=== PATIENT | female | born 1955 ===

== ENCOUNTER 2018-01-14 20:38 | Emergency (ER) | payer SELFPAY ==
[2018-01-14 21:06] VITALS: BMI 27.6
[2018-01-14] MEDS ORDERED: Bacitracin 500 Units/gm Oint Foilpak UD ONE (21:20)
--- NOTE | 2018-01-14 21:25 | ED PDOC ---
Arrival/HPI - General Historian: Patient - History of Present Illness Time/Duration: Prior to Arrival Symptom Onset: Sudden Symptom Course: Unchanged Quality: Throbbing Severity Level: Mild Context: Home <Chico Judd - Last Filed: 01/14/18 21:21> <Isael Smith - Last Filed: 01/14/18 21:52> - General Chief Complaint: Abnormal Skin Integrity Time Seen by Provider: 01/14/18 21:10 - History of Present Illness Narrative History of Present Illness (Text): 01/14/18 21:22 62 year old female, presents to the emergency department with skin avulsion of the right first digit. Patient was using a knife when it slipped and cut a portion of the superficial skin. Initially bled a lot, but bleeding has stopped since in the ED. Patient is experiencing pain. Denies fever, chills, erythema, swelling, headache, dizziness, shortness of breath, chest pain, palpitations, nausea, vomiting, or urinary symptoms. (Chico Judd) Past Medical History - Provider Review Nursing Documentation Reviewed: Yes - Infectious Disease Hx of Infectious Diseases: None - Tetanus Immunization Tetanus Immunization: Unknown - Cardiac Hx Cardiac Disorders: Yes Hx Hypertension: Yes - Endocrine/Metabolic Hx Diabetes Mellitus Type 2: Yes - Psychiatric Hx Depression: Yes Hx Substance Use: No - Past Surgical History Past Surgical History: No Previous - Anesthesia Hx Anesthesia: No - Suicidal Assessment Feels Threatened In Home Enviroment: No <Chico Judd - Last Filed: 01/14/18 21:21> Family/Social History - Physician Review Nursing Documentation Reviewed: Yes Family/Social History: No Known Family HX Smoking Status: Never Smoked Hx Alcohol Use: No Hx Substance Use: No <Chico Judd - Last Filed: 01/14/18 21:21> Allergies/Home Meds <Chico Judd - Last Filed: 01/14/18 21:21> <Isael Smith - Last Filed: 01/14/18 21:52> Allergies/Adverse Reactions: Allergies No Known Allergies Allergy (Verified 05/22/16 10:28) Review of Systems - Physician Review All systems were reviewed & negative as marked: Yes - Review of Systems Constitutional: absent: Fevers Eyes: absent: Vision Changes ENT: absent: Hearing Changes Respiratory: absent: SOB, Cough Cardiovascular: absent: Chest Pain, Palpitations Gastrointestinal: absent: Abdominal Pain, Nausea, Vomiting Genitourinary Female: absent: Dysuria, Hematuria Musculoskeletal: absent: Arthralgias, Back Pain Skin: Skin Lesions. absent: Rash, Laceration, Cellulitis Neurological: absent: Headache, Dizziness Endocrine: absent: Diaphoresis <Chico Judd - Last Filed: 01/14/18 21:21> Physical Exam Vital Signs Reviewed: Yes Temperature: Afebrile Blood Pressure: Normal Pulse: Regular Respiratory Rate: Normal Appearance: Positive for: Well-Appearing, Non-Toxic, Comfortable Pain Distress: Mild Mental Status: Positive for: Alert and Oriented X 3 - Systems Exam Head: Present: Atraumatic, Normocephalic Pupils: Present: PERRL Extroacular Muscles: Present: EOMI Mouth: Present: Moist Mucous Membranes Respiratory/Chest: Present: Clear to Auscultation, Good Air Exchange. No: Respiratory Distress, Accessory Muscle Use Cardiovascular: Present: Regular Rate and Rhythm, Normal S1, S2. No: Murmurs Abdomen: No: Tenderness, Distention, Peritoneal Signs Upper Extremity: Present: NORMAL PULSES, Tenderness, Erythema, Other (skin avulsion of the right first digit ) Skin: Present: Warm, Dry, Normal Color, Abrasion. No: Rashes Psychiatric: Present: Alert, Oriented x 3, Normal Insight, Normal Concentration <Chico Judd - Last Filed: 01/14/18 21:21> Vital Signs Temp Pulse Resp BP Pulse Ox 01/14/18 20:59 98.5 F 69 18 149/85 98 Medical Decision Making <Chico Judd - Last Filed: 01/14/18 21:21> <Isael Smith - Last Filed: 01/14/18 21:52> ED Course and Treatment: 01/14/18 21:34 62F presents to ED with right first digit skin avulsion after knife accident. Patient is no longer bleeding. Superficial wound. Wound cleaned, bacitracin and bandage applied. Advised patient to keep wound clean. Avoid baths and pools for 2 weeks. Apply bacitracin and bandage. Motrin for pain. Advised not to take on empty stomach. If symptoms worsen such as fever or erythema, please return to ED. Patient verbalized understanding and agreement of treatment plan. Case reviewed and discussed with attending provider. (Chico Judd) 01/14/18 21:41 Patient seen with Resident: In agreement with resident note. Patient was seen and evaluated with resident, came up with plan and treatment together. (Isael Smith) - Medication Orders Current Medication Orders: Discontinued Medications Tetanus/Reduced Diphtheria/Acell Pertussis (Boostrix Vaccine Inj) 0.5 ml IM .ONCE ONE Stop: 01/14/18 21:33 <Chico Judd - Last Filed: 01/14/18 21:21> - PA / CHEESE WEIGHER / Resident Statement MD/DO has reviewed & agrees with the documentation as recorded. MD/DO has examined the patient and agrees with the treatment plan. - Scribe Statement The provider has reviewed the documentation as recorded by the Scribe <Isael Smith - Last Filed: 01/14/18 21:52> - Scribe Statement Yesica Vidal All medical record entries made by the Scribe were at my direction and personally dictated by me. I have reviewed the chart and agree that the record accurately reflects my personal performance of the history, physical exam, medical decision making, and the department course for this patient. I have also personally directed, reviewed, and agree with the discharge instructions and disposition. (Isael Smith) Disposition/Present on Arrival - Present on Arrival Any Indicators Present on Arrival: No History of DVT/PE: No History of Uncontrolled Diabetes: No Urinary Catheter: No History of Decub. Ulcer: No History Surgical Site Infection Following: None - Disposition Have Diagnosis and Disposition been Completed?: Yes Disposition Time: 21:24 Patient Plan: Discharge <Chico Judd - Last Filed: 01/14/18 21:21> <Isael Smith - Last Filed: 01/14/18 21:52> - Disposition Diagnosis: Avulsion of skin of finger without complication Disposition: HOME/ ROUTINE Patient Problems: Current Active Problems Problem Status Onset Avulsion of skin of finger without complication Acute Condition: STABLE Discharge Instructions (ExitCare): Wound Care (DC) Additional Instructions: Please follow up with primary medical doctor in 3-5 days. Please apply antibiotic ointment Bacitracin and keep finger clean. Avoid baths or pools to reduce chances of infection. If symptoms worsen, including but not limited to fever, bleeding, or worsening of the finger, please return to the ED. Prescriptions: Ibuprofen [Motrin] 600 mg PO PRN PRN 5 Days #20 tab PRN Reason: Pain, Mild (1-3) Referrals: Reva Hercules MD [Primary Care Provider] - Follow up with primary Forms: [employer] (Croatian)
[2018-01-14] MEDS ORDERED: TDAP Vaccine 0.5 mL Syr IM ONE (21:32)
[2018-01-14 22:13] VITALS: BP 142/72; PULSE 72; RESP 17; TEMP 98.4; O2SAT 99
== END 2018-01-14 22:13 | disposition home or self-care (01) ==
LOC: ED 20:38
DX: S61.001A Unspecified open wound of right thumb without damage to nail, initial encounter (principal); W26.0XXA Contact with knife, initial encounter; Y92.9 Unspecified place or not applicable; Z23 Encounter for immunization

== ENCOUNTER 2018-05-15 14:52 | Outpatient (CLI) | payer SELFPAY | END 2018-05-15 14:53 | disposition home or self-care (01) | LOC: LAB 14:52 ==

== ENCOUNTER 2018-07-15 12:33 | Emergency (ER) | payer SELFPAY ==
[2018-07-15 12:34] VITALS: BMI 25.6
[2018-07-15 13:19] VITALS: RESP 18
[2018-07-15 13:32] VITALS: TEMP 98.5; O2SAT 100
[2018-07-15] MEDS ORDERED: DiphenhydrAMINE 50 mg/ml Inj IVP STA (13:50)
--- NOTE | 2018-07-15 13:54 | ED PDOC ---
Arrival/HPI - General Chief Complaint: ENT Problem Time Seen by Provider: 07/15/18 12:49 Historian: Patient - History of Present Illness Narrative History of Present Illness (Text): 07/15/18 14:25 63 year old female, with past medical history of breast CA on chemotherapy, presents to the ED for evaluation of left sided lip swelling since Saturday. Patient reports associated itchiness to the area and to left side of the neck. P atient additionally states teary eyes but denies any other associated somatic complaints. Patient denies any fevers, chills, headache, dizziness, chest pain, shortness of breath, dyspnea on exertion, cough, abdominal pain, nausea, vomiting, diarrhea, back pain, neck pain, or any other complaints. Patient denies any recent changes in diet or medications. PMD: Dr. Hercules Time/Duration: < week Symptom Onset: Gradual Symptom Course: Unchanged Activities at Onset: Light Context: Home Past Medical History - Provider Review Nursing Documentation Reviewed: Yes - Infectious Disease Hx of Infectious Diseases: None - Tetanus Immunization Tetanus Immunization: Unknown - Reproductive Menopause: Yes - Cardiac Hx Cardiac Disorders: Yes Hx Hypertension: Yes - Endocrine/Metabolic Hx Diabetes Mellitus Type 2: Yes - Psychiatric Hx Depression: Yes Hx Substance Use: No - Past Surgical History Past Surgical History: No Previous - Anesthesia Hx Anesthesia: No - Suicidal Assessment Feels Threatened In Home Enviroment: No Family/Social History - Physician Review Nursing Documentation Reviewed: Yes Family/Social History: No Known Family HX Smoking Status: Never Smoked Hx Alcohol Use: No Hx Substance Use: No Allergies/Home Meds Allergies/Adverse Reactions: Allergies No Known Allergies Allergy (Verified 05/22/16 10:28) Review of Systems - Physician Review All systems were reviewed & negative as marked: Yes - Review of Systems Constitutional: absent: Fevers Eyes: absent: Vision Changes ENT: Other (Left sided lip swelling) Respiratory: absent: SOB, Cough Cardiovascular: absent: Chest Pain, MUNGUIA Gastrointestinal: absent: Abdominal Pain, Constipation, Diarrhea, Nausea, Vomiting Genitourinary Female: absent: Dysuria, Urine Output Changes Musculoskeletal: absent: Back Pain, Neck Pain Skin: absent: Rash Neurological: absent: Headache, Dizziness Psychiatric: absent: Anxiety Physical Exam Vital Signs Reviewed: Yes Vital Signs Temp Pulse Resp BP Pulse Ox 07/15/18 13:31 98.5 F 94 H 18 124/72 100 07/15/18 13:15 99.5 F 99 H 18 114/70 98 Temperature: Afebrile Blood Pressure: Normal Pulse: Regular Respiratory Rate: Normal Appearance: Positive for: Well-Appearing, Non-Toxic, Comfortable Pain Distress: None Mental Status: Positive for: Alert and Oriented X 3 Medical Decision Making ED Course and Treatment: 07/15/18 13:50 Impression: 63 year old female presents to the ED for evaluation of left sided lip swelling. Differential Diagnosis included but are not limited to: Plan: -- Labs -- Benadryl -- Pepcid -- Solumedrol -- Reassess and disposition Prior Visits: Notes and results from previous visits were reviewed. Progress Notes: - Lab Interpretations Lab Results: 07/15/18 14:40 07/15/18 14:40 Lab Results 07/15/18 14:40: Sodium 141, Potassium 4.5, Chloride 103, Carbon Dioxide 26, Anion Gap 16, BUN 12, Creatinine 0.7, Est GFR ( Amer) > 60, Est GFR (Non- Af Amer) > 60, Random Glucose 113 H, Calcium 10.4, Total Bilirubin 0.5, AST 21, ALT 18, Alkaline Phosphatase 99, Total Protein 7.7, Albumin 4.5, Globulin 3.2, Albumin/Globulin Ratio 1.4 07/15/18 14:40: WBC 14.2 H D, RBC 2.77 L, Hgb 9.0 L D, Hct 27.7 L, MCV 100.0 D, MCH 32.5, MCHC 32.5, RDW 16.4 H, Plt Count 381, MPV 8.8, Neut % (Auto) 87.0 H, Lymph % (Auto) 5.6 L, [place] % (Auto) 6.9 H, Eos % (Auto) 0.2 L, Baso % (Auto) 0. 3, Lymph # (Auto) 0.8 L, [place] # (Auto) 1.0 H, Eos # (Auto) 0.0, Baso # (Auto) 0.04, Absolute Neuts (auto) 12.39 H I have reviewed the lab results: Yes - Scribe Statement The provider has reviewed the documentation as recorded by the Scribe Scarlet Domínguez. All medical record entries made by the Scribe were at my direction and personally dictated by me. I have reviewed the chart and agree that the record accurately reflects my personal performance of the history, physical exam, medical decision making, and the department course for this patient. I have also personally directed, reviewed, and agree with the discharge instructions and disposition. Disposition/Present on Arrival - Present on Arrival Any Indicators Present on Arrival: No History of DVT/PE: No History of Uncontrolled Diabetes: No Urinary Catheter: No History of Decub. Ulcer: No History Surgical Site Infection Following: None - Disposition Have Diagnosis and Disposition been Completed?: Yes Diagnosis: Allergic reaction Disposition: HOME/ ROUTINE Disposition Time: 17:50 Patient Plan: Discharge Condition: IMPROVED Discharge Instructions (ExitCare): Allergy Skin Testing Print Language: SINHALA Additional Instructions: All medical record entries made by the Scribe were at my direction and personally dictated by me. I have reviewed the chart and agree that the record accurately reflects my personal performance of the history, physical exam, medical decision making, and the department course for this patient. I have also personally directed, reviewed, and agree with the discharge instructions and disposition. Please follow up in clinic with Dr. Hercules and with your oncologist Prescriptions: DiphenhydrAMINE [Benadryl] 25 mg PO Q6H #10 cap Mag&Al/Simet/Diphen/Lido [First Magic Mouthwash] 30 ml MM Q6H #1 kit Methylprednisolone [Medrol Dose Pack (21 tabs)] 4 mg PO DAILY #21 mg Referrals: Reva Hercules MD [Medical Doctor] - Follow up with primary [facility] [place] - Follow up with primary Forms: [employer] (Turkish)
[2018-07-15 14:54] LABS: BASO # 0.04 K/mm3 (0.0-2.0); BASO % 0.3 % (0.0-3.0); EOS % 0.2 % (1.5-5.0); LYMPH # 0.8 (1.2-3.4); LYMPH % 5.6 % (22.0-35.0); MEAN CORPUSCULAR HEMOGLOBIN 32.5 pg (25.0-35.0); MEAN CORPUSCULAR HGB CONC 32.5 g/dl (31.0-37.0); MEAN PLATELET VOLUME 8.8 fl (7.0-11.0); MONO % 6.9 % (1.0-6.0); RBC 2.77 10^6/uL (3.5-6.1); RED CELL DISTRIBUTION WIDTH 16.4 % (11.5-14.5); WHITE BLOOD COUNT 14.2 10^3/uL (4.5-11.0)
[2018-07-15 15:01] LABS: ALB/GLOB RATIO 1.4 (1.1-1.8); ALBUMIN 4.5 g/dL (3.0-4.8); ALT/SGPT 18 U/L (7-56); AST/SGOT 21 U/L (14-36); BLOOD UREA NITROGEN 12 mg/dL (7-21); CALCIUM 10.4 mg/dL (8.4-10.5); GFR NON-AFRICAN AMERICAN > 60
[2018-07-15] MEDS ORDERED: Sodium Chloride 0.9% 1,000 ML IV STA (16:30)
[2018-07-15 17:12] VITALS: BP 133/73; PULSE 89
[2018-07-15] MEDS ORDERED: Aluminum Hydroxide/Magnesium 30 ML, DiphenhydrAMINE 75 MG, Lidocaine 2% Viscous 30 ML PO STA (17:46)
== END 2018-07-15 18:31 | disposition home or self-care (01) ==
LOC: ED 12:33
DX: T78.40XA Allergy, unspecified, initial encounter (principal); X58.XXXA Exposure to other specified factors, initial encounter
CPT/HCPCS: 80053; 85025; 96361; 96374; 96375; 99283; J1200; J1885; J2930; J7030

== ENCOUNTER 2018-07-24 12:37 | Inpatient (IN) | payer SELFPAY ==
[2018-07-24 13:02] VITALS: BMI 22.1
--- NOTE | 2018-07-24 13:53 | ED PDOC ---
Arrival/HPI - General Chief Complaint: Syncope Time Seen by Provider: 07/24/18 13:32 Historian: Patient, Family (daugther in law) - History of Present Illness Narrative History of Present Illness (Text): 07/24/18 13:42 63 y/o F with pmh of hypertension, hyperlipidemia, diabetes and 2nd stage breast cancer (currently on chemo) presents with cc of dizziness w/ LOC at store prior to arrival, per daughter in law. Patient is Emirati speaking. Per daughter in law, patient was in a store when she suddenly felt dizzy, became unresponsive and fell on her left side. Patient denies any head trauma. Patient also complains she was short of breath earlier but has since resolved prior to arrival. Patient denies any fevers, chills, headache, chest pain, shortness of breath, dyspnea on exertion, cough, diaphoresis, abdominal pain, nausea, vomiting, diarrhea, back pain, neck pain, or any other complaints. Time/Duration: Prior to Arrival Symptom Onset: Sudden Symptom Course: Unchanged Activities at Onset: Light Context: Home Past Medical History - Provider Review Nursing Documentation Reviewed: Yes - Infectious Disease Hx of Infectious Diseases: None - Tetanus Immunization Tetanus Immunization: Unknown - Reproductive Menopause: Yes - Cardiac Hx Cardiac Disorders: Yes Hx Hypertension: Yes - Endocrine/Metabolic Hx Diabetes Mellitus Type 2: Yes - Integumentary Hx Dermatological Disorder: No - Genitourinary/Gynecological Other/Comment: breast ca ,chemo - Psychiatric Hx Depression: Yes Hx Substance Use: No - Past Surgical History Past Surgical History: No Previous - Anesthesia Hx Anesthesia: No - Suicidal Assessment Feels Threatened In Home Enviroment: No Family/Social History - Physician Review Nursing Documentation Reviewed: Yes Family/Social History: Unknown Family HX Smoking Status: Never Smoked Hx Alcohol Use: No Hx Substance Use: No Allergies/Home Meds Allergies/Adverse Reactions: Allergies No Known Allergies Allergy (Verified 05/22/16 10:28) Home Medications: Home Meds Medication Instructions Recorded Confirmed Aspirin [Ecotrin] 81 mg PO DAILY 07/24/18 07/24/18 Lisinopril/Hydrochlorothiazide 1 each PO DAILY 07/24/18 07/24/18 [Lisinopril-Hctz 20-12.5 mg Tab] MetFORMIN ER [Glucophage XR] 500 mg PO BID 07/24/18 07/24/18 Simvastatin [Zocor] 20 mg PO DAILY 07/24/18 07/24/18 Review of Systems - Physician Review All systems were reviewed & negative as marked: Yes - Review of Systems Constitutional: Normal Eyes: Normal ENT: Normal Respiratory: Normal. absent: Cough Cardiovascular: Normal Gastrointestinal: Normal Genitourinary Female: Normal Musculoskeletal: Normal Skin: Normal Neurological: Dizziness Endocrine: Normal Hemo/Lymphatic: Normal Psychiatric: Normal Physical Exam Vital Signs Reviewed: Yes Appearance: Positive for: Well-Appearing, Non-Toxic, Comfortable Pain Distress: None Mental Status: Positive for: Alert and Oriented X 3 - Systems Exam Head: Present: Atraumatic, Normocephalic Pupils: Present: PERRL Extroacular Muscles: Present: EOMI Conjunctiva: Present: Normal Mouth: Present: Moist Mucous Membranes Neck: Present: Normal Range of Motion Respiratory/Chest: Present: Clear to Auscultation, Good Air Exchange, Other (Left flank tenderness). No: Respiratory Distress, Accessory Muscle Use Cardiovascular: Present: Regular Rate and Rhythm, Normal S1, S2. No: Murmurs Abdomen: No: Tenderness, Distention, Peritoneal Signs Back: Present: Normal Inspection Upper Extremity: Present: Normal Inspection. No: Cyanosis, Edema Lower Extremity: Present: Cyanosis (left tibia). No: Edema Neurological: Present: GCS=15, Speech Normal Skin: Present: Warm, Dry, Normal Color. No: Rashes Psychiatric: Present: Alert, Oriented x 3, Normal Insight, Normal Concentration Medical Decision Making ED Course and Treatment: 07/24/18 13:45 Impression: 63 y/o F presents with cc of dizziness w/ LOC at store prior to arrival, per daughter in law Differential Diagnosis included but are not limited to: -- Syncopy -- [place] -- Anemia Plan: -- Head CT w/o contrast --EKG --Labs --UA --CXR -- Reassess and disposition Prior Visits: Notes and results from previous visits were reviewed. Progress Notes: 07/24/18 15:[address] Branham who agrees to admit patient - RAD Interpretation Narrative RAD Interpretations (Text): 07/24/18 16:49 Chest X-Ray -- No active disease Head CT -- No intracranial mass, hemorrhage or evidence of acute infarct. Minimal chronic white matter ischemic change. Acid Treater: Radiologist - EKG Interpretation EKG Interpretation (Text): 07/24/18 13:56 EKG shows NSR at 87BPM with normal QRS, normal axis, normal intervals, no acute ST/T wave abnormalities. Interpreted by me. Interpreted by ED Physician: Yes Type: 12 lead EKG - Scribe Statement The provider has reviewed the documentation as recorded by the Scribe Andree Herrera All medical record entries made by the Manishaibfly were at my direction and personally dictated by me. I have reviewed the chart and agree that the record accurately reflects my personal performance of the history, physical exam, medical decision making, and the department course for this patient. I have also personally directed, reviewed, and agree with the discharge instructions and disposition. Disposition/Present on Arrival - Present on Arrival History of DVT/PE: No History of Uncontrolled Diabetes: No Urinary Catheter: No History of Decub. Ulcer: No History Surgical Site Infection Following: None - Disposition
[2018-07-24 14:40] LABS: BASO # 0.07 K/mm3 (0.0-2.0); BASO % 0.5 % (0.0-3.0); EOS # 0.1 (0.0-0.7); EOS % 0.6 % (1.5-5.0); HEMOGLOBIN 10.5 g/dL (12.0-16.0); LYMPH # 1.1 (1.2-3.4); LYMPH % 8.2 % (22.0-35.0); MEAN CELL VOLUME 98.8 fl (80.0-105.0); MEAN CORPUSCULAR HEMOGLOBIN 32.1 pg (25.0-35.0); MEAN CORPUSCULAR HGB CONC 32.5 g/dl (31.0-37.0); MONO # 0.8 (0.1-0.6); MONO % 6.2 % (1.0-6.0); RBC 3.27 10^6/uL (3.5-6.1); RED CELL DISTRIBUTION WIDTH 15.6 % (11.5-14.5)
[2018-07-24 14:44] LABS: INR 1.17; PARTIAL THROMBOPLASTIN TIME 28.9 Seconds (26.9-38.3)
[2018-07-24 15:08] LABS: ALB/GLOB RATIO 1.3 (1.1-1.8); ALBUMIN 4.2 g/dL (3.0-4.8); ALT/SGPT 20 U/L (7-56); AST/SGOT 30 U/L (14-36); BLOOD UREA NITROGEN 15 mg/dL (7-21); CALCIUM 10.2 mg/dL (8.4-10.5); GFR NON-AFRICAN AMERICAN > 60; TROPONIN I 0.01 ng/mL
--- NOTE | 2018-07-24 15:45 | RAD ---
Date of service: 07/24/2018 HISTORY: r/o infiltrate COMPARISON: No prior. TECHNIQUE: 1 view obtained. FINDINGS: LUNGS: No active pulmonary disease. PLEURA: No significant pleural effusion identified, no pneumothorax apparent. CARDIOVASCULAR: No aortic atherosclerotic calcification present. Normal cardiac size. Right-sided venous infusion port noted. OSSEOUS STRUCTURES: No significant abnormalities. VISUALIZED UPPER ABDOMEN: Normal. OTHER FINDINGS: None. IMPRESSION: No active disease.
--- NOTE | 2018-07-24 15:52 | CT ---
Date of service: 07/24/2018 PROCEDURE: CT HEAD WITHOUT CONTRAST. HISTORY: syncope COMPARISON: Not available TECHNIQUE: Axial computed tomography images were obtained through the head/brain without intravenous contrast. Radiation dose: Total exam DLP = 844.23 mGy-cm. This CT exam was performed using one or more of the following dose reduction techniques: Automated exposure control, adjustment of the mA and/or kV according to patient size, and/or use of iterative reconstruction technique. FINDINGS: HEMORRHAGE: No intracranial hemorrhage. BRAIN: No mass effect or edema. Minimal chronic white matter ischemic change adjacent to the frontal horns of the lateral ventricles. VENTRICLES: Unremarkable. No hydrocephalus. CALVARIUM: Unremarkable. PARANASAL SINUSES: Unremarkable as visualized. No significant inflammatory changes. MASTOID AIR CELLS: Unremarkable as visualized. No inflammatory changes. OTHER FINDINGS: None. IMPRESSION: No intracranial mass, hemorrhage or evidence of acute infarct. Minimal chronic white matter ischemic change.
--- NOTE | 2018-07-24 16:02 | CARD ---
APPROVED REPORT Date of service: 07/24/2018 EKG Measurement Heart [id number] <Conclusion> Normal sinus rhythm Normal ECG
--- NOTE | 2018-07-24 16:15 | CP.PCM.HP ---
<AdolfoAriel - Last Filed: 07/24/18 17:54> History of Present Illness - History of Present Illness History of Present Illness: Ariel Mata, PGY1 Medicine H&P for Dr. Kevan Branham cc: dizziness and LOC s/p syncopal episode Patient is a 63 y/o Bulgarian Speaking F with PMHx HTN, HLD, DM, diverticulitis, Stage II breast cancer (completed x8 rounds of chemotherapy) presents to the ED for syncopal episode. Patient felt dizzy while she was at the store, felt a "dark curtain over her eyes" and had an associated fall. No tongue biting, shaking, or post-ictal state. This was witnessed by bystanders. Patient had LOC. Total downtime was for 15 minutes. Patient initially had syncope, she woke up afterwards, and experienced syncope again. During her fall, she hit her head and did land on the left side of her body. She has some pain at her left thoracic region. Patient did endorse to the team that she has not eaten much lately and last time she ate was yesterday. Previously admitted for dizziness at [place] and was given x2 pRBC blood transfusions and discharged same day. Patient denies cp, shortness of breath, bloody stools, blood in urine, headache, fever, chills, n/v/d. She is aware that her Hgb count is on the low side. Last colonoscopy was in [place] and showed diverticulitis. A full 12 point ROS was conducted and unremarkable except as stated above. PMD: Dr. Hercules ([facility]) Ins: [employer] Heme/Onc: Dr. Downey PMHx: PMHX: HTN, HLD, DM, diverticulitis, Stage II breast cancer (completed x8 rounds of chemotherapy) PSHx: denies Meds: see MAR SocialHx: no EtOH, smoking, or illicit drug use. Lives with brother. FamHx: daughter has breast cancer. Father had SD. Present on Admission - Present on Admission Any Indicators Present on Admission: No Review of Systems - Review of Systems All systems: reviewed and no additional remarkable complaints except (as per HPI) Past Patient History - Infectious Disease Hx of Infectious Diseases: None - Tetanus Immunizations Tetanus Immunization: Unknown - Past Medical History & Family History Past Medical History?: Yes - Past Social History Smoking Status: Never Smoked - CARDIAC Hx Cardiac Disorders: Yes Hx Hypertension: Yes - ENDOCRINE/METABOLIC Hx Diabetes Mellitus Type 2: Yes - INTEGUMENTARY Hx Dermatological Problems: No - GENITOURINARY/GYNECOLOGICAL Other/Comment: breast ca ,chemo - PSYCHIATRIC Hx Depression: Yes Hx Substance Use: No - SURGICAL HISTORY Hx Surgeries: No - ANESTHESIA Hx Anesthesia: No Meds Allergies/Adverse Reactions: Allergies Allergy/AdvReac Type Severity Reaction Status Date / Time No Known Allergies Allergy Verified 05/22/16 10:28 Physical Exam - Constitutional Appears: No Acute Distress - Head Exam Head Exam: ATRAUMATIC, NORMAL INSPECTION, NORMOCEPHALIC - Eye Exam Eye Exam: EOMI, Normal appearance. absent: Nystagmus, Scleral icterus Pupil Exam: PERRL - ENT Exam ENT Exam: Mucous Membranes Moist - Respiratory Exam Respiratory Exam: Clear to Auscultation Bilateral. absent: Chest Wall Tenderness, Rales, Rhonchi, Wheezes - Cardiovascular Exam Cardiovascular Exam: REGULAR RHYTHM, +S1, +S2 Additional comments: Right chest wall shows scar from previous chemo-port. - Extremities Exam Extremities exam: Positive for: normal capillary refill, normal inspection, pedal pulses present - Back Exam Back exam: NORMAL INSPECTION - Neurological Exam Neurological exam: Alert, CN II-XII Intact, Oriented x3 Additional comments: Strength testing 5/5 motor. Sensation intact in all distal ext. No focal neuro deficits. Negative [place]-Hallpike maneuver. - Psychiatric Exam Psychiatric exam: Normal Affect, Normal Mood - Skin Skin Exam: Dry, Intact, Normal Color, Warm Results - Vital Signs Recent Vital Signs: Last Vital Signs Temp 98.3 F 07/24/18 13:24 Pulse 76 07/24/18 13:24 Resp 18 07/24/18 13:24 BP 130/74 07/24/18 13:24 Pulse Ox 100 07/24/18 13:24 - Labs Result Diagrams: 07/24/18 14:30 07/24/18 14:30 Labs: Laboratory Results - last 24 hr 07/24/18 07/24/18 07/24/18 14:30 14:30 14:30 WBC 13.0 H RBC 3.27 L Hgb 10.5 L Hct 32.3 L MCV 98.8 MCH 32.1 MCHC 32.5 RDW 15.6 H Plt Count 309 MPV 9.0 Neut % (Auto) 84.5 H Lymph % (Auto) 8.2 L [place] % (Auto) 6.2 H Eos % (Auto) 0.6 L Baso % (Auto) 0.5 Lymph # (Auto) 1.1 L [place] # (Auto) 0.8 H Eos # (Auto) 0.1 Baso # (Auto) 0.07 Absolute Neuts (auto) 10.96 H PT 13.0 H INR 1.17 APTT 28.9 Sodium 139 Potassium 4.2 Chloride 98 Carbon Dioxide 31 Anion Gap 13 BUN 15 Creatinine 0.9 Est GFR ( Amer) > 60 Est GFR (Non-Af Amer) > 60 Random Glucose 113 H Calcium 10.2 Phosphorus 3.9 Magnesium 1.6 L Total Bilirubin 0.4 AST 30 ALT 20 Alkaline Phosphatase 89 Lactate Dehydrogenase 351 Total Creatine Kinase 29 L Troponin I 0.01 Total Protein 7.3 Albumin 4.2 Globulin 3.2 Albumin/Globulin Ratio 1.3 Assessment & Plan - Assessment and Plan (Free Text) Assessment: Patient is a 63 y/o Bulgarian Speaking F with PMHx HTN, HLD, DM, diverticulitis, Stage II breast cancer (completed x8 rounds of chemotherapy) presents to the ED for syncopal episode. Plan: Syncope - Consider syncopal workup vs Dehydration/Poor PO intake vs symptomatic anemia (less suspicious) - orthostatic vital signs - IVF NS @ 75 cc/hr - CTA head/neck - Brain MRI - TSH - trend trops - Mild leukocytosis - will f/u UA and UCx results - Neurology is on consult (Dr. Hinojosa) - Physical therapy on board Anemia - FOBT - Hgb 10.5 (baseline 11-12) - iron studies ordered Breast Cancer (Stage II) - completed chemo; had chemo-port in place HTN - resume home med lisinopril HLD - resume home med lipitor DM - ISS - accuchecks DVT ppx: Hep sc GI ppx: not indicated Diet: CCD Dispo: Will monitor patient on telemetry. Case was discussed and reviewed with Attending Physician, Dr. Kevan Branham. <Bella Branham R - Last Filed: 07/24/18 18:35> Results - Vital Signs Recent Vital Signs: Last Vital Signs Temp 98.2 F 07/24/18 17:34 Pulse 90 07/24/18 18:23 Resp 18 07/24/18 18:23 BP 128/79 07/24/18 18:23 Pulse Ox 100 07/24/18 18:23 - Labs Result Diagrams: 07/24/18 14:30 07/24/18 14:30 Labs: Laboratory Results - last 24 hr 07/24/18 07/24/18 07/24/18 14:30 14:30 14:30 WBC 13.0 H RBC 3.27 L Hgb 10.5 L Hct 32.3 L MCV 98.8 MCH 32.1 MCHC 32.5 RDW 15.6 H Plt Count 309 MPV 9.0 Neut % (Auto) 84.5 H Lymph % (Auto) 8.2 L [place] % (Auto) 6.2 H Eos % (Auto) 0.6 L Baso % (Auto) 0.5 Lymph # (Auto) 1.1 L [place] # (Auto) 0.8 H Eos # (Auto) 0.1 Baso # (Auto) 0.07 Absolute Neuts (auto) 10.96 H PT 13.0 H INR 1.17 APTT 28.9 Sodium 139 Potassium 4.2 Chloride 98 Carbon Dioxide 31 Anion Gap 13 BUN 15 Creatinine 0.9 Est GFR ( Amer) > 60 Est GFR (Non-Af Amer) > 60 Random Glucose 113 H Calcium 10.2 Phosphorus 3.9 Magnesium 1.6 L Iron Total Bilirubin 0.4 AST 30 ALT 20 Alkaline Phosphatase 89 Lactate Dehydrogenase 351 Total Creatine Kinase 29 L Troponin I 0.01 Total Protein 7.3 Albumin 4.2 Globulin 3.2 Albumin/Globulin Ratio 1.3 07/24/18 18:00 WBC RBC Hgb Hct MCV MCH MCHC RDW Plt Count MPV Neut % (Auto) Lymph % (Auto) [place] % (Auto) Eos % (Auto) Baso % (Auto) Lymph # (Auto) [place] # (Auto) Eos # (Auto) Baso # (Auto) Absolute Neuts (auto) PT INR APTT Sodium Potassium Chloride Carbon Dioxide Anion Gap BUN Creatinine Est GFR ( Amer) Est GFR (Non-Af Amer) Random Glucose Calcium Phosphorus Magnesium Iron 52 Total Bilirubin AST ALT Alkaline Phosphatase Lactate Dehydrogenase Total Creatine Kinase Troponin I Total Protein Albumin Globulin Albumin/Globulin Ratio Attending/Attestation - Attestation I have personally seen and examined this patient.: Yes I have fully participated in the care of the patient.: Yes I have reviewed all pertinent clinical information: Yes Notes (Text): Patient seen and examined by me with resident at approximately 4:35PM on 07/24/18 in the emergency room. Case including HPI, physical exam, and assessment and plan discussed with resident. Agree with above with following additions/corrections. Patient is a 63-year-old female past medical history significant for hypertension, hyperlipidemia, type 2 diabetes, anemia, diverticulitis, syncope, and stage II breast cancer status post completion of chemotherapy weeks ago the presented to the emergency room for syncopal episode. Per patient's family at bedside, patient has not been eating well the past 2 or 3 days. She states that she has not eaten since 5 PM yesterday. She states she was walking to the store today when she felt dizzy and lightheaded and fell backwards and "passed out." Patient states she then woke up and tried to stand up but again lost consciousness. Patient states that people in the store were trying to wake her up and that she lost consciousness for about 15 minutes. Patient states that she does not believe she hit her head but she was told by others that she did. She states she is have pain on her left side where her ribs are. She states that this has happened before when she was on chemotherapy. She states it also happened when she was found to be anemic and had to get a blood transfusion May of this year. Patient denies any chest pain or shortness of breath. She denies any current headaches or dizziness. Patient does not feel weak. She denies any muscle weakness. No tingling and numbness. No fevers or chills. No nausea, vomiting, abdominal pain. No dysuria. No diarrhea or constipation. Patient does not use any assistive devices to ambulate. 12 point review of systems reviewed by me. Please see above HPI, all other systems negative. Family history: Mother from liver cancer. Father from heart attack. Allergies: no known drug allergies Medications at home: Reviewed with the patient's pharmacy Physical exam: General: Awake and alert sitting up in bed in no acute distress. HEENT: Normocephalic, atraumatic. Extraocular muscles intact, pupils equal and reactive, no scleral icterus. Oropharynx is pink and moist. No pharyngeal eryt rolando or exudate appreciated. Neck is supple. Hearing grossly intact. Ears and nose externally unremarkable. Cardiovascular: Regular rhythm. Normal S1, S2. No murmurs, rubs, or gallops appreciated Pulmonary: Normal respiratory effort. No rales or wheezing appreciated. Gastrointestinal: Soft. Nontender. Nodistended. Positive bowel sounds all 4 quadrants. No guarding. Musculoskeletal: Moves all extremities. No calf tenderness. No edema appreciated. Positive left upper rib tenderness. Central nervous system: AAOx3. CN 2-12 grossly intact. 5/5 muscle strength all extremities. Dermatologic: Skin warm and dry. Assessment and plan: Patient is a 63-year-old female past medical history significant for hypertension, hyperlipidemia, type 2 diabetes, anemia, diverticulitis, syncope, and stage II breast cancer status post completion of chemotherapy weeks ago the presented to the emergency room for syncopal episode. 1. Syncope. Head CT per radiologist showed no intracranial mass, hemorrhage, or evidence of acute infarct; mild normal chronic white matter ischemic change. Follow-up brain MRI. CTA head and neck. May be secondary to patient not eating and dehydration. Placed on IV fluids. Follow up troponins. Neurology consulted, pending recommendations. Follow up orthostatics. 2. Left sided rib pain S/P fall. Follow up left rib xray 3. Hypomagnesemia. Will give magnesium sulfate, follow up repeat labs in AM. 4. Chronic anemia. May be secondary to history of malignancy. Follow up iron studies. Follow up stool for occult blood. 5. DM2. Placed on insulin sliding scale. Monitor accuchecks. Patient takes metformin at home. 6. Hypertension. Continue home HCTZ and Lisinopril with hold parameters 7. Hyperlipidemia. Continue home lipitor 8. Stage 2 breast cancer. S/P completion of chemo. Patient to continue outpatient follow up with her oncologist as an outpatient. 9. DVT prophylaxis. Heparin 10. Patient is a full code Case was discussed in detail with the patient and patient's family at bedside with patient's permission regarding current diagnosis and treatment plan. All questions answered.
[2018-07-24] MEDS: Sodium Chloride 0.9% 1,000 ML IV SCH (17:15)
[2018-07-24] MEDS ORDERED: Magnesium Sulfate 1 gm in D5W 1 GM/100 ML BAG IVPB ONE (17:53)
[2018-07-24 18:23] VITALS: O2SAT 100
[2018-07-24 18:27] LABS: IRON 52 ug/dL (45-180)
[2018-07-24 18:36] LABS: % IRON SATURATION 19 % (20-55); TOTAL IRON BINDING CAPACITY 281 ug/dL (265-497)
[2018-07-24 20:27] LABS: TROPONIN I 0.01 ng/mL
[2018-07-24] MEDS: Insulin Lispro (humaLOG) LOW Coverage SC SCH (22:30)
[2018-07-25] MEDS: Sodium Chloride 0.9% 1,000 ML IV SCH (06:30)
[2018-07-25 07:20] LABS: HEMOGLOBIN 9.7 g/dL (12.0-16.0); MEAN CORPUSCULAR HEMOGLOBIN 31.6 pg (25.0-35.0); MEAN CORPUSCULAR HGB CONC 31.9 g/dl (31.0-37.0); MEAN PLATELET VOLUME 9.3 fl (7.0-11.0); RBC 3.07 10^6/uL (3.5-6.1); RED CELL DISTRIBUTION WIDTH 15.8 % (11.5-14.5); WHITE BLOOD COUNT 6.2 10^3/uL (4.5-11.0)
[2018-07-25 07:32] LABS: ALB/GLOB RATIO 1.4 (1.1-1.8); ALBUMIN 3.9 g/dL (3.0-4.8); ALT/SGPT 23 U/L (7-56); AST/SGOT 19 U/L (14-36); BLOOD UREA NITROGEN 13 mg/dL (7-21); CALCIUM 9.5 mg/dL (8.4-10.5); GFR NON-AFRICAN AMERICAN > 60
[2018-07-25 07:40] LABS: TROPONIN I 0.02 ng/mL
[2018-07-25] MEDS ORDERED: Potassium Chloride 20 mEq ER Tab PO STA (08:14)
[2018-07-25 08:59] VITALS: RESP 20
[2018-07-25] MEDS: Insulin Lispro (humaLOG) LOW Coverage SC SCH ×3 (09:07→17:04)
--- NOTE | 2018-07-25 10:09 | RAD ---
Date of service: 07/24/2018 PROCEDURE: Left ribs HISTORY: pain s/p fall COMPARISON: TECHNIQUE: Four views FINDINGS: No evidence of displaced rib fracture or pneumothorax IMPRESSION: Negative study
--- NOTE | 2018-07-25 10:22 | CT ---
Date of service: 07/24/2018 PROCEDURE: CT Angiography of the neck with contrast HISTORY: syncope COMPARISON: None. TECHNIQUE: Contiguous axial images of the neck were obtained from the level of the skull-base to the superior mediastinum in the arteriographic phase of enhancement. Coronal and sagittal reformats or also generated. IV contrast dose: Radiation dose: Total exam DLP = 416.07 mGy-cm. This CT exam was performed using one or more of the following dose reduction techniques: Automated exposure control, adjustment of the mA and/or kV according to patient size, and/or use of iterative reconstruction technique. FINDINGS: RIGHT CAROTID ARTERIES: Unremarkable LEFT CAROTID ARTERIES: There is a short segment mild stenosis at the origin of the left internal carotid. The degree of stenosis is approximately 50 or 60 percent. VERTEBRAL ARTERIES: Right Vertebral Artery: Normal. Left Vertebral Artery: Normal. OTHER FINDINGS: no aortic atherosclerotic calcification or mural plaque present. 7 mm nodule or cyst in the right lobe of the thyroid. The report concurs with the preliminary [facility] report IMPRESSION: There is a short segment mild stenosis at the origin of the left internal carotid. The degree of stenosis is approximately [address] Angiography of the Brain. HISTORY: syncope COMPARISON: None available. TECHNIQUE: CT angiography of the intracranial arteries was performed. Coronal and sagittal maximum intensity projection reformated images were generated. Radiation dose: Total exam DLP = 416.07 mGy-cm. This CT exam was performed using one or more of the following dose reduction techniques: Automated exposure control, adjustment of the mA and/or kV according to patient size, and/or use of iterative reconstruction technique. FINDINGS: INTERNAL CEREBRAL ARTERIES: Unremarkable. The skull base, petrous, cavernous and supraclinoid segments are bilaterally widely patent. ANTERIOR CEREBRAL ARTERIES: Unremarkable. A1 and A2 segments are widely patent. Smaller distal branches unremarkable, as visualized. MIDDLE CEREBRAL ARTERIES: Unremarkable. M1 and M2 segments are widely patent. Perisylvian branches grossly symmetric. POSTERIOR CIRCULATION: Basilar Artery: Unremarkable. Distal Vertebral Arteries: Unremarkable. Posterior Cerebral Arteries: Unremarkable. Posterior Inferior Cerebellar Arteries: Unremarkable. ANEURYSM/ VASCULAR MALFORMATIONS: None. OTHER FINDINGS: None. IMPRESSION: Unremarkable CT Angiography of the Brain.
--- NOTE | 2018-07-25 11:07 | MRI ---
Date of service: 07/24/2018 PROCEDURE: MRI BRAIN WITHOUT CONTRAST HISTORY: syncope COMPARISON: None available. TECHNIQUE: Multiplanar, multisequence MR images of the brain were obtained without intravenous contrast enhancement. FINDINGS: HEMORRHAGE: None DWI: No evidence of an acute or early subacute infarction. BRAIN PARENCHYMA: No mass effect or edema. No atrophy or chronic microvascular ischemic changes. VENTRICLES: Unremarkable. No hydrocephalus. CRANIUM: Unremarkable. ORBITS: Grossly unremarkable. PARANASAL SINUSES/MASTOIDS: Clear VASCULAR SYSTEM: Skull base flow voids intact. OTHER FINDINGS: None. IMPRESSION: Unremarkable non contrast enhanced MRI of the brain.
[2018-07-25 12:31] LABS: TRANSFERRIN 195.61 mg/dL (206-381)
--- NOTE | 2018-07-25 12:33 | CP.PCM.PN ---
<Karlos Farr - Last Filed: 07/25/18 12:25> Subjective - Date & Time of Evaluation Date of Evaluation: 07/25/18 Time of Evaluation: 10:00 - Subjective Subjective: Karlos Farr PGY1 Medicine Progress Note Patient seen and examined this morning. no acute events reported overnight. Patient admits to back pain improved with tylenol and denies dizziness, chest pain, SOB, abdominal pain. Eating and sleeping comfortably. Denies any new complaints today. Objective - Vital Signs/Intake and Output Vital Signs (last 24 hours): Temp Pulse Resp BP Pulse Ox 98.5 F 89 20 120/72 100 07/25/18 06:00 07/25/18 09:05 07/25/18 06:00 07/25/18 09:05 07/25/18 06:00 Intake and Output: 07/25/18 07/25/18 06:59 18:59 Intake Total 240 Balance 240 - Medications Medications: Current Medications Aspirin (Ecotrin) 81 mg PO DAILY [facility] Last Admin: 07/25/18 09:06 Dose: 81 mg Atorvastatin Calcium (Lipitor) 10 mg PO DAILY [facility] Last Admin: 07/25/18 09:05 Dose: 10 mg Heparin Sodium (Porcine) (Heparin) 5,000 units SC Q8 [facility]; Protocol Last Admin: 07/25/18 06:30 Dose: Not Given Hydrochlorothiazide (Microzide) 12.5 mg PO DAILY [facility] Last Admin: 07/25/18 09:06 Dose: 12.5 mg Sodium Chloride (Sodium Chloride 0.9%) 1,000 mls @ 75 mls/hr IV .[id number] [facility] Stop: 07/25/18 17:01 Last Admin: 07/25/18 06:30 Dose: 75 mls/hr Insulin Human Lispro (Humalog Low) 0 units SC ACHS [facility]; Protocol Last Admin: 07/25/18 12:16 Dose: Not Given Lisinopril (Zestril) 20 mg PO DAILY [facility] Last Admin: 07/25/18 09:05 Dose: 20 mg - Labs Labs: 07/25/18 06:30 07/25/18 06:30 PT 13.0 SECONDS (9.4-12.5) H 07/24/18 14:30 INR 1.17 07/24/18 14:30 APTT 28.9 Seconds (26.9-38.3) 07/24/18 14:30 Physical Exam - Constitutional Appears: No Acute Distress - Head Exam Head Exam: ATRAUMATIC, NORMAL INSPECTION, NORMOCEPHALIC - Eye Exam Eye Exam: EOMI, Normal appearance. absent: Nystagmus, Scleral icterus Pupil Exam: PERRL - ENT Exam ENT Exam: Mucous Membranes Moist - Respiratory Exam Respiratory Exam: Clear to Auscultation Bilateral. absent: Chest Wall Tenderness, Rales, Rhonchi, Wheezes - Cardiovascular Exam Cardiovascular Exam: REGULAR RHYTHM, +S1, +S2 Additional comments: Right chest wall shows scar from previous chemo-port. - Extremities Exam Extremities exam: Positive for: normal capillary refill, normal inspection, pedal pulses present - Back Exam Back exam: NORMAL INSPECTION - Neurological Exam Neurological exam: Alert, CN II-XII Intact, Oriented x3 Additional comments: No focal sensory/motor deficits appreciated. Negative [place]-Hallpike maneuver. - Skin Skin Exam: Dry, Intact, Normal Color, Warm Assessment and Plan - Assessment and Plan (Free Text) Assessment: Patient is a 63 y/o Japanese Speaking F with PMHx HTN, HLD, DM, diverticulitis, Stage II breast cancer (completed x8 rounds of chemotherapy) admitted to the hospital for syncope Plan: Syncope - likely 2/2 dehydration, poor oral intake - continue NS @ 75cc - CT head shows no intracranial mass, hemorrhage, infarct - MRI brain unremarkable - CTA head neck shows short segment mild stenosis left internal carotid 50-60 percent, 7mm thyroid nodule, unremarkable CT angio of brain - carotid and vertebral duplex pending - TSH WNL - trops WNL - Neurology is on consult (Dr. Hinojosa) - Physical therapy on board Rib pain - rib xray is negative - pain improved today Hypomagnesia - resolved, monitor Anemia - Hg is 9.7 from 10.5 - ferritin pending Breast Cancer (Stage II) - completed chemo; had chemo-port in place HLD - continue lipitor DM - ISS and accuchecks HTN - continue lisinopril PPX - heparin 5k Case was discussed and reviewed with Attending Physician, Kevan Hoover <Bella Branham - Last Filed: 07/26/18 11:13> Objective - Vital Signs/Intake and Output Vital Signs (last 24 hours): Temp Pulse Resp BP Pulse Ox 98.1 F 84 20 109/66 100 07/25/18 16:56 07/25/18 16:56 07/25/18 16:56 07/25/18 16:56 07/25/18 16:56 - Labs Labs: 07/25/18 06:30 07/25/18 06:30 PT 13.0 SECONDS (9.4-12.5) H 07/24/18 14:30 INR 1.17 07/24/18 14:30 APTT 28.9 Seconds (26.9-38.3) 07/24/18 14:30 Attending/Attestation - Attestation I have personally seen and examined this patient.: Yes I have fully participated in the care of the patient.: Yes I have reviewed all pertinent clinical information, including history, physical exam and plan: Yes Notes (Text): Patient seen and examined by me with resident at approximately 10AM on 07/25/18. Case including HPI, physical exam, and assessment and plan discussed with resident. Agree with above with following additions/corrections. Patient is a 63-year-old female past medical history significant for hypert ension, hyperlipidemia, type 2 diabetes, anemia, diverticulitis, syncope, and stage II breast cancer status post completion of chemotherapy weeks ago the presented to the emergency room for syncopal episode. Patient states that she is feeling much better. Patient states that she has been ambulating without feeling any lightheadedness or dizziness. Patient states she was able to eat her breakfast this morning. She denies any nausea, vomiting, or abdominal pain. No change in vision. No headaches. No chest pain or shortness of breath. No dysuria. No diarrhea or constipation. marble finisher Meet #[id number] used for translation. Physical exam: General: Awake and alert sitting up in bed in no acute distress. HEENT: Normocephalic, atraumatic. Extraocular muscles intact, pupils equal and reactive, no scleral icterus. Oropharynx is pink and moist. No pharyngeal erythema or exudate appreciated. Neck is supple. Cardiovascular: Regular rhythm. Normal S1, S2. No murmurs, rubs, or gallops appreciated Pulmonary: Normal respiratory effort. No rales or wheezing appreciated. Gastrointestinal: Soft. Nontender. Nodistended. Positive bowel sounds all 4 quadrants. No guarding. Musculoskeletal: Moves all extremities. No calf tenderness. No edema appreciated. Positive left upper rib tenderness. Central nervous system: AAOx3. CN 2-12 grossly intact. 5/5 muscle strength all extremities. Dermatologic: Skin warm and dry. Assessment and plan: Patient is a 63-year-old female past medical history significant for hypertension, hyperlipidemia, type 2 diabetes, anemia, diverticulitis, syncope, and stage II breast cancer status post completion of chemotherapy weeks ago the presented to the emergency room for syncopal episode. 1. Syncope. Orthostatics within normal limits. Troponins within normal limits. Brain MRI per radiologist showed unremarkable noncontrast enhanced MRI of the brain. CTA neck per radiologist showed short segment mild stenosis at the origin of the left internal carotid, the degree of stenosis is approximately 50-60%. CTA of head per radiologist showed unremarkable CT angiography of the brain. Head CT per radiologist showed no intracranial mass, hemorrhage, or evidence of acute infarct; mild normal chronic white matter ischemic change. Bilateral carotid ultrasound per radiologist showed bilateral 20-39% proximal ICA stenosis, antegrade flow in both vertebral arteries. Syncope likely secondary to dehydration and poor appetite. Neurology recommendations appreciated. 2. Left sided rib pain S/P fall. Left rib x-rays radiologist showed negative study. 3. Hypomagnesemia. Resolved. 4. Chronic anemia. May be secondary to history of malignancy. Ferritin and iron levels within normal limits. She was advised to follow-up with her primary care doctor for further workup and treatment. 5. DM2. Continue insulin sliding scale. Continue to monitor accuchecks. Patient takes metformin at home. 6. Hypertension. Continue home HCTZ and Lisinopril with hold parameters 7. Hyperlipidemia. Continue home lipitor 8. Stage 2 breast cancer. S/P completion of chemo. Patient to continue outpatient follow up with her oncologist as an outpatient. 9. DVT prophylaxis. Heparin 10. Patient is a full code Case was discussed in detail with the patient regarding current diagnosis and t reatment plan. All questions answered.
[2018-07-25 13:30] LABS: FOLATE 10.2 ng/mL
--- NOTE | 2018-07-25 16:40 | CP.PCM.DIS ---
<Karlos Farr - Last Filed: 07/25/18 16:28> Provider - Provider Date of Admission: 07/24/18 15:45 Attending physician: Bella Branham DO Consults: 07/24/18 17:04 Physician Consult Routine Comment: Consulting Provider: Lucius Hinojosa Consulting Physician: Lucius Hinojosa Reason for Consult: syncope Time Spent in preparation of Discharge (in minutes): 35 Hospital Course - Lab Results Lab Results: Most Recent Lab Values WBC 6.2 10^3/uL (4.5-11.0) D 07/25/18 06:30 RBC 3.07 10^6/uL (3.5-6.1) L 07/25/18 06:30 Hgb 9.7 g/dL (12.0-16.0) L 07/25/18 06:30 Hct 30.4 % (36.0-48.0) L 07/25/18 06:30 MCV 99.0 fl (80.0-105.0) 07/25/18 06:30 MCH 31.6 pg (25.0-35.0) 07/25/18 06:30 MCHC 31.9 g/dl (31.0-37.0) 07/25/18 06:30 RDW 15.8 % (11.5-14.5) H 07/25/18 06:30 Plt Count 312 10^3/uL (120.0-450.0) 07/25/18 06:30 MPV 9.3 fl (7.0-11.0) 07/25/18 06:30 Neut % (Auto) 84.5 % (50.0-68.0) H 07/24/18 14:30 Lymph % (Auto) 8.2 % (22.0-35.0) L 07/24/18 14:30 [place] % (Auto) 6.2 % (1.0-6.0) H 07/24/18 14:30 Eos % (Auto) 0.6 % (1.5-5.0) L 07/24/18 14:30 Baso % (Auto) 0.5 % (0.0-3.0) 07/24/18 14:30 Lymph # (Auto) 1.1 (1.2-3.4) L 07/24/18 14:30 [place] # (Auto) 0.8 (0.1-0.6) H 07/24/18 14:30 Eos # (Auto) 0.1 (0.0-0.7) 07/24/18 14:30 Baso # (Auto) 0.07 K/mm3 (0.0-2.0) 07/24/18 14:30 Absolute Neuts (auto) 10.96 (1.4-6.5) H 07/24/18 14:30 PT 13.0 SECONDS (9.4-12.5) H 07/24/18 14:30 INR 1.17 07/24/18 14:30 APTT 28.9 Seconds (26.9-38.3) 07/24/18 14:30 Sodium 138 mmol/L (132-148) 07/25/18 06:30 Potassium 3.3 mmol/L (3.6-5.0) L 07/25/18 06:30 Chloride 103 mmol/L (98-107) 07/25/18 06:30 Carbon Dioxide 27 mmol/L (21-33) 07/25/18 06:30 Anion Gap 11 (10-20) 07/25/18 06:30 BUN 13 mg/dL (7-21) 07/25/18 06:30 Creatinine 0.7 mg/dl (0.7-1.2) 07/25/18 06:30 Est GFR ( Amer) > 60 07/25/18 06:30 Est GFR (Non-Af Amer) > 60 07/25/18 06:30 POC Glucose (mg/dL) 143 mg/dL (65-110) H 07/25/18 15:56 Random Glucose 117 mg/dL (70-110) H 07/25/18 06:30 Calcium 9.5 mg/dL (8.4-10.5) 07/25/18 06:30 Phosphorus 3.9 mg/dL (2.5-4.5) 07/24/18 14:30 Magnesium 1.7 mg/dL (1.7-2.2) 07/25/18 06:30 Iron 52 ug/dL (45-180) 07/24/18 18:00 TIBC 281 ug/dL (265-497) 07/24/18 18:00 % Saturation 19 % (20-55) L 07/24/18 18:00 Transferrin 195.61 mg/dL (206-381) L 07/24/18 18:00 Ferritin 215.0 ng/mL 07/24/18 20:00 Total Bilirubin 0.3 mg/dL (0.2-1.3) 07/25/18 06:30 AST 19 U/L (14-36) 07/25/18 06:30 ALT 23 U/L (7-56) 07/25/18 06:30 Alkaline Phosphatase 88 U/L (38-126) 07/25/18 06:30 Lactate Dehydrogenase 351 U/L (333-699) 07/24/18 14:30 Total Creatine Kinase 29 U/L (35-230) L 07/24/18 14:30 Troponin I 0.02 ng/mL 07/25/18 06:30 Total Protein 6.7 g/dL (5.8-8.3) 07/25/18 06:30 Albumin 3.9 g/dL (3.0-4.8) 07/25/18 06:30 Globulin 2.8 gm/dL 07/25/18 06:30 Albumin/Globulin Ratio 1.4 (1.1-1.8) 07/25/18 06:30 Vitamin B12 740 pg/mL (239-931) 07/24/18 20:00 Folate 10.2 ng/mL 07/24/18 20:00 TSH 3rd Generation 1.37 mIU/mL (0.46-4.68) 07/24/18 18:00 Physical Exam - Constitutional Appears: No Acute Distress - Head Exam Head Exam: ATRAUMATIC, NORMAL INSPECTION, NORMOCEPHALIC - Eye Exam Eye Exam: EOMI, Normal appearance. absent: Nystagmus, Scleral icterus Pupil Exam: PERRL - ENT Exam ENT Exam: Mucous Membranes Moist - Respiratory Exam Respiratory Exam: Clear to Auscultation Bilateral. absent: Chest Wall Tenderness, Rales, Rhonchi, Wheezes - Cardiovascular Exam Cardiovascular Exam: REGULAR RHYTHM, +S1, +S2 Additional comments: Right chest wall shows scar from previous chemo-port. - Extremities Exam Extremities exam: Positive for: normal capillary refill, normal inspection, pedal pulses present - Back Exam Back exam: NORMAL INSPECTION - Neurological Exam Neurological exam: Alert, CN II-XII Intact, Oriented x3 Additional comments: No focal sensory/motor deficits appreciated. Negative [place]-Hallpike maneuver. - Skin Skin Exam: Dry, Intact, Normal Color, Warm - Hospital Course Hospital Course: Upon admission, 63 y/o Ethiopian Speaking F with PMHx HTN, HLD, DM, diverticulitis, Stage II breast cancer (completed x8 rounds of chemotherapy) presents to the ED for syncopal episode. Patient felt dizzy while she was at the store, felt a "dark curtain over her eyes" and had an associated fall. No tongue biting, shaking, or post-ictal state. This was witnessed by bystanders. Patient had LOC. Total downtime was for 15 minutes. Patient initially had syncope, she woke up afterwards, and experienced syncope again. During her fall, she hit her head and did land on the left side of her body. She has some pain at her left thoracic region. Patient did endorse to the team that she has not eaten much lately and last time she ate was yesterday. Previously admitted for dizziness at [place] and was given x2 pRBC blood transfusions and discharged same day. During hospital course, patient admitted for syncope. CT head shows no intracranial mass, hemorrhage, infarct, MRI brain unremarkable, CTA head neck shows short segment mild stenosis left internal carotid 50-60 percent, 7mm thyroid nodule, unremarkable CT angio of brain, and carotid and vertebral duplex pending. TSH WNL, trops WNL. Neurology is on consult and cleared patient for discharge today with follow up with PMD for outpatient results of carotid ultrasound and CTA head/neck results. Patient agreed with discharge today and all questions were answered to patient's satisfaction. Patient verbally agreed with follow up with primary care doctor and stated she did not need any refills at this time. Discharge Plan - Follow Up Plan Condition: GOOD Disposition: HOME/ ROUTINE Instructions: Syncope (Fainting) (DC), Dizziness, Nonvertigo, (DC) Additional Instructions: Please follow up with your primary care doctor, Dr. Hercules. You have already been scheduled for your routine 2 month follow up visit on 08/07/18 in the [facility], please make sure to attend this appointment and discuss your hospital stay. Please follow up with Dr. Hercules the results of your CT of your neck which showed 50-60% blockage on the left internal carotid artery. Please continue your aspirin and zocor. Please follow up with your primary care doctor for your chronic anemia. Please continue taking your home medications as previously taken. As per our discussion, you do not need any refills at this time. Please obtain refills from your primary care doctor as needed. Please return to the ED if the symptoms return or you experience new concerning symptoms. Referrals: [facility] [Outside] <Bella Branham - Last Filed: 07/26/18 14:20> Provider - Provider Date of Admission: 07/24/18 15:45 Attending physician: Bella Branham DO Consults: 07/24/18 17:04 Physician Consult Routine Comment: Consulting Provider: Lucius Hinojosa Consulting Physician: Lucius Hinojosa Reason for Consult: syncope Hospital Course - Lab Results Lab Results: Most Recent Lab Values WBC 6.2 10^3/uL (4.5-11.0) D 07/25/18 06:30 RBC 3.07 10^6/uL (3.5-6.1) L 07/25/18 06:30 Hgb 9.7 g/dL (12.0-16.0) L 07/25/18 06:30 Hct 30.4 % (36.0-48.0) L 07/25/18 06:30 MCV 99.0 fl (80.0-105.0) 07/25/18 06:30 MCH 31.6 pg (25.0-35.0) 07/25/18 06:30 MCHC 31.9 g/dl (31.0-37.0) 07/25/18 06:30 RDW 15.8 % (11.5-14.5) H 07/25/18 06:30 Plt Count 312 10^3/uL (120.0-450.0) 07/25/18 06:30 MPV 9.3 fl (7.0-11.0) 07/25/18 06:30 Neut % (Auto) 84.5 % (50.0-68.0) H 07/24/18 14:30 Lymph % (Auto) 8.2 % (22.0-35.0) L 07/24/18 14:30 [place] % (Auto) 6.2 % (1.0-6.0) H 07/24/18 14:30 Eos % (Auto) 0.6 % (1.5-5.0) L 07/24/18 14:30 Baso % (Auto) 0.5 % (0.0-3.0) 07/24/18 14:30 Lymph # (Auto) 1.1 (1.2-3.4) L 07/24/18 14:30 [place] # (Auto) 0.8 (0.1-0.6) H 07/24/18 14:30 Eos # (Auto) 0.1 (0.0-0.7) 07/24/18 14:30 Baso # (Auto) 0.07 K/mm3 (0.0-2.0) 07/24/18 14:30 Absolute Neuts (auto) 10.96 (1.4-6.5) H 07/24/18 14:30 PT 13.0 SECONDS (9.4-12.5) H 07/24/18 14:30 INR 1.17 07/24/18 14:30 APTT 28.9 Seconds (26.9-38.3) 07/24/18 14:30 Sodium 138 mmol/L (132-148) 07/25/18 06:30 Potassium 3.3 mmol/L (3.6-5.0) L 07/25/18 06:30 Chloride 103 mmol/L (98-107) 07/25/18 06:30 Carbon Dioxide 27 mmol/L (21-33) 07/25/18 06:30 Anion Gap 11 (10-20) 07/25/18 06:30 BUN 13 mg/dL (7-21) 07/25/18 06:30 Creatinine 0.7 mg/dl (0.7-1.2) 07/25/18 06:30 Est GFR ( Amer) > 60 07/25/18 06:30 Est GFR (Non-Af Amer) > 60 07/25/18 06:30 POC Glucose (mg/dL) 143 mg/dL (65-110) H 07/25/18 15:56 Random Glucose 117 mg/dL (70-110) H 07/25/18 06:30 Calcium 9.5 mg/dL (8.4-10.5) 07/25/18 06:30 Phosphorus 3.9 mg/dL (2.5-4.5) 07/24/18 14:30 Magnesium 1.7 mg/dL (1.7-2.2) 07/25/18 06:30 Iron 52 ug/dL (45-180) 07/24/18 18:00 TIBC 281 ug/dL (265-497) 07/24/18 18:00 % Saturation 19 % (20-55) L 07/24/18 18:00 Transferrin 195.61 mg/dL (206-381) L 07/24/18 18:00 Ferritin 215.0 ng/mL 07/24/18 20:00 Total Bilirubin 0.3 mg/dL (0.2-1.3) 07/25/18 06:30 AST 19 U/L (14-36) 07/25/18 06:30 ALT 23 U/L (7-56) 07/25/18 06:30 Alkaline Phosphatase 88 U/L (38-126) 07/25/18 06:30 Lactate Dehydrogenase 351 U/L (333-699) 07/24/18 14:30 Total Creatine Kinase 29 U/L (35-230) L 07/24/18 14:30 Troponin I 0.02 ng/mL 07/25/18 06:30 Total Protein 6.7 g/dL (5.8-8.3) 07/25/18 06:30 Albumin 3.9 g/dL (3.0-4.8) 07/25/18 06:30 Globulin 2.8 gm/dL 07/25/18 06:30 Albumin/Globulin Ratio 1.4 (1.1-1.8) 07/25/18 06:30 Vitamin B12 740 pg/mL (239-931) 07/24/18 20:00 Folate 10.2 ng/mL 07/24/18 20:00 TSH 3rd Generation 1.37 mIU/mL (0.46-4.68) 07/24/18 18:00 Attending/Attestation - Attestation I have personally seen and examined this patient.: Yes I have fully participated in the care of the patient.: Yes I have reviewed all pertinent clinical information, including history, physical exam and plan: Yes Notes (Text): Please note this DC summary is for 07/25/18 Patient seen and examined by me with resident at approximately 10AM and prior to discharge on 07/25/18. Case including discharge plan discussed with resident. Agree with above with following additions/corrections. Patient is a 63-year-old female past medical history significant for hypertension, hyperlipidemia, type 2 diabetes, anemia, diverticulitis, syncope, and stage II breast cancer status post completion of chemotherapy weeks ago the presented to the emergency room for syncopal episode. Please see H&P for full details. Patient was found to have syncope, left-sided rib pain status post fall, hypomagnesemia, chronic anemia, type 2 diabetes, hypertension, hyperlipidemia, and history of stage II breast cancer status post chemotherapy. Orthostatics were within normal limits. Troponins were within normal limits. EKG was normal sinus rhythm. Brain MRI per radiologist showed unremarkable noncontrast enhanced MRI of the brain. CTA neck per radiologist showed short segment mild stenosis at the origin of the left internal carotid, the degree of stenosis is approximately 50-60%. CTA of head per radiologist showed unremarkable CT angiography of the brain. Head CT per radiologist showed no intracranial mass, hemorrhage, or evidence of acute infarct; mild normal chronic white matter ischemic change. Bilateral carotid ultrasound per radiologist showed bilateral 20-39% proximal ICA stenosis, antegrade flow in both vertebral arteries. Patient was evaluated by neurologist. Syncope was likely secondary to dehydration and poor appetite. All symptoms resolved. Patient also complained of left sided rib pain. Left rib x-rays radiologist showed negative study. Patient was found to have hypomagnesemia. Patient was given IV magnesium sulfate with improvement. Patient was also found to have chronic anemia, likely secondary to history of malignancy. Hgb was 10.5 which downtrended to 9.7 likely dilutional effect. Ferritin elevated at 215. Iron levels were within normal limits. Patient was advised to continue outpatient follow up with her primary care doctor for the anemia. Patient was treated with insulin sliding scale for history type 2 diabetes. Patient was continued on home hydrochlorothiazide and lisinopril for hypertension. Patient was continued on home Lipitor for hyperlipidemia. Patient also with history of stage II breast cancer status post recent chemotherapy completion. Patient was advised to continue outpatient follow-up with her oncologist. Patient was feeling much better. Patient was cleared for discharge by neurologist. Patient was discharged home. On day of discharge, patient stated she was feeling much better. No shortness of breath. Cough improved. No chest pain or palpitations. Patient denied any lightheadedness or dizziness. No headaches or change in vision. No fevers or chills. No nausea or vomiting. No abdominal pain. No dysuria. No diarrhea or constipation. Physical exam: General: Awake and alert sitting up in bed in no acute distress. HEENT: Normocephalic, atraumatic. Extraocular muscles intact, pupils equal and reactive, no scleral icterus. Oropharynx is pink and moist. No pharyngeal erythe ma or exudate appreciated. Neck is supple. Cardiovascular: Regular rhythm. Normal S1, S2. No murmurs, rubs, or gallops appreciated Pulmonary: Normal respiratory effort. Improved breath sounds with coughing. No rales or wheezing appreciated. Gastrointestinal: Soft, nondistended. Nontender. Positive bowel sounds all 4 quadrants. No guarding. Musculoskeletal: Moves all extremities. No calf tenderness. No edema appreciated. Central nervous system: AAOx3. CN 2-12 grossly intact Dermatologic: Skin warm and dry. Please see chart for full details. Follow up instructions: Patient to follow-up with primary care doctor on 08/07/18. Patient to continue home medications. Patient to stay well hydrated and not skip meals. All instructions explained to the patient in detail. Patient both understands and agrees to all instructions. Written instructions also given. Time spent in discharging the patient including chart review, medication reconciliation, discussion with the patient, medical insurance coder, consultants, and nursing staff was approximately 40 minutes.
--- NOTE | 2018-07-25 16:42 | CP.PCM.CON ---
<Angle Garcia - Last Filed: 07/25/18 16:42> History of Present Illness - History of Present Illness History of Present Illness: Angel Garcia PGY2 Neurology Consult Note for Dr. Hinojosa Requested by: Dr. Branham 63 y/o [place] Speaking F with PMHx HTN, HLD, DM, diverticulitis, Stage II breast cancer (completed x8 rounds of chemotherapy) presented to the ED for syncopal episode. Patient stated she was out shopping at a store and felt eyes going black and had a fall. She denied any seizure activity. She stated she hit her head and left side of her body. She admitted to [facility] for 15 minutes. Previous ly she was admitted for dizziness at [place] and was given x2 pRBC blood transfusions and discharged same day. Patient denies cp, shortness of breath, bloody stools, blood in urine, headache, fever, chills, n/v/d. She is aware that her Hgb count is on the low side. Last colonoscopy was in [place] and showed diverticulitis. PMD: Dr. Hercules ([facility]) Ins: [facility] Care Heme/Onc: Dr. Downey PMHX: HTN, HLD, DM, diverticulitis, Stage II breast cancer (completed x8 rounds of chemotherapy) PSHx: denies Meds: see MAR SocialHx: no EtOH, smoking, or illicit drug use. Lives with brother. FamHx: daughter has breast cancer. Father had MS. Review of Systems - Neurological Neurological: Syncope, Tremor. absent: Convulsions, Disequilibrium, Dizziness, Numbness, Focal Weakness, Frequent Falls, Headaches, Lack of Coordination, Loss of Vision, Memory Loss, Paresthesias, Sensory Deficit, Tingling, Vertigo, Weakness Past Patient History - Infectious Disease Hx of Infectious Diseases: None - Tetanus Immunizations Tetanus Immunization: Unknown - Past Medical History & Family History Past Medical History?: Yes - Past Social History Smoking Status: Never Smoked - CARDIAC Hx Hypercholesterolemia: Yes Hx Hypertension: Yes - PULMONARY Hx Respiratory Disorders: No - NEUROLOGICAL Hx Neurological Disorder: No - HEENT Hx HEENT Problems: Yes Hx Glaucoma: Yes - RENAL Hx Chronic Kidney Disease: No - ENDOCRINE/METABOLIC Hx Diabetes Mellitus Type 2: Yes - HEMATOLOGICAL/ONCOLOGICAL Hx Blood Disorders: Yes Hx Anemia: Yes Hx Cancer: Yes (left breast cancer) Hx Chemotherapy: Yes - INTEGUMENTARY Hx Dermatological Problems: No - MUSCULOSKELETAL/RHEUMATOLOGICAL Hx Musculoskeletal Disorders: No Hx Falls: Yes (syncope) - GASTROINTESTINAL Hx Gastrointestinal Disorders: No - GENITOURINARY/GYNECOLOGICAL Hx Genitourinary Disorders: No - PSYCHIATRIC Hx Psychophysiologic Disorder: No - SURGICAL HISTORY Hx Surgeries: Yes (breast biopsy, port implant) - ANESTHESIA Hx Anesthesia: No Meds Allergies/Adverse Reactions: Allergies Allergy/AdvReac Type Severity Reaction Status Date / Time No Known Allergies Allergy Verified 05/22/16 10:28 - Medications Medications: Current Medications Aspirin (Ecotrin) 81 mg PO DAILY [facility] Last Admin: 07/25/18 09:06 Dose: 81 mg Atorvastatin Calcium (Lipitor) 10 mg PO DAILY [facility] Last Admin: 07/25/18 09:05 Dose: 10 mg Heparin Sodium (Porcine) (Heparin) 5,000 units SC Q8 [facility]; Protocol Last Admin: 07/25/18 15:12 Dose: 5,000 units Hydrochlorothiazide (Microzide) 12.5 mg PO DAILY [facility] Last Admin: 07/25/18 09:06 Dose: 12.5 mg Sodium Chloride (Sodium Chloride 0.9%) 1,000 mls @ 75 mls/hr IV .[id number] [facility] Stop: 07/25/18 17:01 Last Admin: 07/25/18 06:30 Dose: 75 mls/hr Insulin Human Lispro (Humalog Low) 0 units SC ACHS [facility]; Protocol Last Admin: 07/25/18 12:16 Dose: Not Given Lisinopril (Zestril) 20 mg PO DAILY [facility] Last Admin: 07/25/18 09:05 Dose: 20 mg Physical Exam - Constitutional Appears: No Acute Distress Additional comments: marked pallor - Head Exam Head Exam: ATRAUMATIC, NORMAL INSPECTION, NORMOCEPHALIC - Eye Exam Eye Exam: EOMI, Normal appearance, PERRL Pupil Exam: PERRL - ENT Exam ENT Exam: Mucous Membranes Moist - Extremities Exam Extremities exam: Positive for: full ROM - Neurological Exam Neurological exam: Alert, CN II-XII Intact, Normal Gait, Oriented x3, Reflexes Normal Results - Vital Signs Recent Vital Signs: Last Vital Signs Temp 98.5 F 07/25/18 06:00 Pulse 89 07/25/18 09:05 Resp 20 07/25/18 06:00 BP 120/72 07/25/18 09:05 Pulse Ox 100 07/25/18 06:00 - Labs Result Diagrams: 07/25/18 06:30 07/25/18 06:30 Labs: Laboratory Results - last 24 hr 07/24/18 07/24/18 07/24/18 12:58 18:00 18:00 WBC RBC Hgb Hct MCV MCH MCHC RDW Plt Count MPV Sodium Potassium Chloride Carbon Dioxide Anion Gap BUN Creatinine Est GFR ( Amer) Est GFR (Non-Af Amer) POC Glucose (mg/dL) 124 H Random Glucose Calcium Magnesium Iron 52 TIBC 281 % Saturation 19 L Transferrin 195.61 L Ferritin Total Bilirubin AST ALT Alkaline Phosphatase Troponin I Total Protein Albumin Globulin Albumin/Globulin Ratio Vitamin B12 Folate TSH 3rd Generation 1.37 07/24/18 07/24/18 07/25/18 20:00 21:24 00:45 WBC RBC Hgb Hct MCV MCH MCHC RDW Plt Count MPV Sodium Potassium Chloride Carbon Dioxide Anion Gap BUN Creatinine Est GFR ( Amer) Est GFR (Non-Af Amer) POC Glucose (mg/dL) 177 H Random Glucose Calcium Magnesium Iron TIBC % Saturation Transferrin Ferritin 215.0 Total Bilirubin AST ALT Alkaline Phosphatase Troponin I 0.01 0.02 D Total Protein Albumin Globulin Albumin/Globulin Ratio Vitamin B12 740 Folate 10.2 TSH 3rd Generation 07/25/18 07/25/18 07/25/18 06:30 06:30 07:22 WBC 6.2 D RBC 3.07 L Hgb 9.7 L Hct 30.4 L MCV 99.0 MCH 31.6 MCHC 31.9 RDW 15.8 H Plt Count 312 MPV 9.3 Sodium 138 Potassium 3.3 L Chloride 103 Carbon Dioxide 27 Anion Gap 11 BUN 13 Creatinine 0.7 Est GFR ( Amer) > 60 Est GFR (Non-Af Amer) > 60 POC Glucose (mg/dL) 120 H Random Glucose 117 H Calcium 9.5 Magnesium 1.7 Iron TIBC % Saturation Transferrin Ferritin Total Bilirubin 0.3 AST 19 ALT 23 Alkaline Phosphatase 88 Troponin I 0.02 Total Protein 6.7 Albumin 3.9 Globulin 2.8 Albumin/Globulin Ratio 1.4 Vitamin B12 Folate TSH 3rd Generation 07/25/18 07/25/18 11:22 15:56 WBC RBC Hgb Hct MCV MCH MCHC RDW Plt Count MPV Sodium Potassium Chloride Carbon Dioxide Anion Gap BUN Creatinine Est GFR ( Amer) Est GFR (Non-Af Amer) POC Glucose (mg/dL) 128 H 143 H Random Glucose Calcium Magnesium Iron TIBC % Saturation Transferrin Ferritin Total Bilirubin AST ALT Alkaline Phosphatase Troponin I Total Protein Albumin Globulin Albumin/Globulin Ratio Vitamin B12 Folate TSH 3rd Generation Assessment & Plan - Assessment and Plan (Free Text) Plan: Syncope -likely not cause by neurological trigger, maybe secondary to anemia or cardiogenic cause -Brain MRI negative -Head/Neck CTA negative -patient seems to be anemic, -anemia workup <Lucius Hinojosa - Last Filed: 07/27/18 21:00> Results - Vital Signs Recent Vital Signs: Last Vital Signs Temp 98.1 F 07/25/18 16:56 Pulse 84 07/25/18 16:56 Resp 20 07/25/18 16:56 BP 109/66 07/25/18 16:56 Pulse Ox 100 07/25/18 16:56 - Labs Result Diagrams: 07/25/18 06:30 07/25/18 06:30 Attending/Attestation - Attestation I have personally seen and examined this patient.: Yes I have fully participated in the care of the patient.: Yes I have reviewed all pertinent clinical information: Yes Notes (Text): I agree with the assessment and plan. Continue medical work-up and management.
[2018-07-25 16:57] VITALS: BP 109/66; PULSE 84; TEMP 98.1
--- NOTE | 2018-07-25 20:38 | US ---
PROCEDURE: Bilateral carotid artery duplex ultrasound HISTORY: Carotid stenosis syncope PHYSICIAN(S): Nirav Cheema MD. TECHNIQUE: Duplex sonography and color-flow Doppler were used to evaluate the carotid bifurcations and limited segments of the vertebral arteries bilaterally. FINDINGS: There is mild smooth hypoechoic plaque noted at the carotid bifurcations bilaterally. The peak systolic velocity in the proximal right internal carotid artery is 75 cm/sec. This corresponds to a 20 to 39% proximal right ICA stenosis. Normal systolic velocities are noted in the proximal right external carotid artery. There is antegrade flow in the right vertebral artery. The peak systolic velocity in the proximal left internal carotid artery is 84 cm/sec. This corresponds to a 20 to 39% proximal left ICA stenosis. Normal systolic velocities are noted in the proximal left external carotid artery. There is antegrade flow in the left vertebral artery. IMPRESSION: 1. Bilateral 20-39% proximal ICA stenoses. 2. Antegrade flow in both vertebral arteries.
== END 2018-07-25 18:57 | disposition home or self-care (01) | DRG 422 ==
LOC: ED 12:37 → ERH 15:45 → 3RSO 19:56
PROVIDERS: ADMIT Hospitalist; ATTEND Hospitalist
DX: E86.0 Dehydration (principal); C50.919 Malignant neoplasm of unspecified site of unspecified female breast; I65.23 Occlusion and stenosis of bilateral carotid arteries; D63.0 Anemia in neoplastic disease; E83.42 Hypomagnesemia; I10 Essential (primary) hypertension; R63.0 Anorexia; E11.9 Type 2 diabetes mellitus without complications; E78.5 Hyperlipidemia, unspecified; Z68.22 Body mass index [BMI] 22.0-22.9, adult; R07.81 Pleurodynia; W19.XXXA Unspecified fall, initial encounter; Y92.512 Supermarket, store or market as the place of occurrence of the external cause; Z92.21 Personal history of antineoplastic chemotherapy